=== PATIENT | female | born 1985 | race Caucasian/White ===

== ENCOUNTER 2019-02-09 07:39 | Day surgery (SDC) | payer OTHER ==
[2019-02-07 11:55] LABS: BASOPHILS % (AUTO) 0.6 % (0-1); EOSINOPHILS # (AUTO) 0.1 X10'3 (0-0.9); EOSINOPHILS % (AUTO) 2.6 % (0-6); LYMPHOCYTES # (AUTO) 1.7 X10'3 (1.1-4.8); LYMPHOCYTES % (AUTO) 30.4 % (21-51); MEAN CORPUSCULAR HEMOGLOBIN 31.6 PG (27.0-31.0); MEAN CORPUSCULAR HGB CONC 35.5 g/dL (33.0-36.5); MEAN PLATELET VOLUME 7.1 FL (7.4-10.4); MONOCYTES # (AUTO) 0.3 X10'3 (0-0.9); MONOCYTES % (AUTO) 5.7 % (2-12); NEUTROPHILS # (AUTO) 3.4 X10'3 (1.8-7.7); NEUTROPHILS % (AUTO) 60.7 % (42-75); PRE OP HEMATOCRIT 41.4 % (35.0-45.0); PRE OP HEMOGLOBIN 14.7 g/dL (12.0-16.0); PRE OP PLATELET COUNT 272 X10'3 (140-440); RED BLOOD COUNT 4.65 X10'6 (4.20-5.60); RED CELL DISTRIBUTION WIDTH 12.8 % (11.5-14.5)
[2019-02-07 12:17] LABS: HCG SERUM QL NEGATIVE
[~2019-02-09] VITALS: Ht 162.6 cm; Wt 84.8 kg
[2019-02-09] VITALS (12 sets, daily range): BP systolic 109–129; BP diastolic 62–91
[~2019-02-09 07:39] MED LIST: ALPR-624 PO; VALA10002 PO; famotidine 20mg tablet PO ONE; ringers solution, lacted 1,000 ML IV SCH
[2019-02-09] MEDS ORDERED: ringers solution, lacted 1,000 ML IV SCH (09:16)
[2019-02-09] MEDS ORDERED: morphine 4 MG/ML inj SYRINge IV PRN ×2 (09:20)
[2019-02-09] MEDS ORDERED: proCHLORperazine 10 MG/2 ml inj IV PRN (09:20)
[2019-02-09] MEDS ORDERED: meperidine/PF 25mg/ml syringe IV PRN ×3 (09:20)
[2019-02-09] MEDS ORDERED: ondansetron/PF 4mg/2ml inj IV PRN (09:20)
[2019-02-09] MEDS ORDERED: dexamethasone sod phosphate 10mg/ml inj ONE (09:57)
[2019-02-09] MEDS ORDERED: sevoflurane 250ml liquid IH ONE (09:57)
[2019-02-09] MEDS ORDERED: fentaNYL/PF 50MCG/1 ML 2ML syringe ONE (10:00)
[2019-02-09] MEDS ORDERED: midazolam 2 mg/2 ml injection ONE (10:00)
[2019-02-09] MEDS ORDERED: propofol inj 20 ML IV ONE (10:34)
[2019-02-09] MEDS ORDERED: LIDOcaine 1%/PF 5ML 10 MG/ML VIAL ONE (10:34)
[2019-02-09] MEDS ORDERED: ketorolac trometh. 30mg/ml inj. ONE (10:35)
[2019-02-09] MEDS ORDERED: ondansetron/PF 4mg/2ml inj ONE (10:35)
[2019-02-09] MEDS ORDERED: oxyCODONE/APAP 5-325mg tablet PO ONE ×2 (10:40)
--- NOTE | 2019-02-09 10:44 | NUR ---
Received from OR via [facility], accompanied by Anesthesiologist DR LUONG and report given by Anesthesiologist. PT DROWSY, TEARFUL, DENIES PAIN, EMOTIONAL SUPPORT OFFERED, PT W/MAME PAD CDI. Addendum: 02/09/19 at 1115 by Becky Reilly RN Amended: Links added.
--- NOTE | 2019-02-09 12:24 | NUR ---
PT D/C INSTRUCTIONS GIVEN AND GONE OVER W/PT AND PTS FRIEND WHOM VERBALIZE UNDERSTANDING, PT D/CD TO HOME VIA W/C TO PRIVATE VEHICLE W/O INCIDENT. Addendum: 02/09/19 at 1252 by Becky Reilly RN Amended: Links added.
== END 2019-02-09 12:24 | disposition home or self-care (01) ==
LOC: PAS 07:39
PROVIDERS: ATTEND Obstetrics & Gynecology
DX: N92.0 Excessive and frequent menstruation with regular cycle (principal); F41.9 Anxiety disorder, unspecified; E66.01 Morbid (severe) obesity due to excess calories; Z68.32 Body mass index [BMI] 32.0-32.9, adult; Z87.442 Personal history of urinary calculi; Z98.890 Other specified postprocedural states; Z79.899 Other long term (current) drug therapy
CPT/HCPCS: 36415; 82948; 84703; 85025; A4264; A4355; A4618; A6258; J1100; J1885; J2250; J2405; J2704; J3010; J7030; J7120